=== PATIENT | female | born 1990 | race Caucasian/White ===

== ENCOUNTER 2020-03-15 15:30 | Outpatient (CLI) | payer OTHER ==
[~2020-03-15] VITALS: Ht 162.6 cm; Wt 71.4 kg
[2020-03-15 15:56] VITALS: BP 124/79; PULSE 96; TEMP 97
--- NOTE | 2020-03-15 16:05 | NUR ---
PATIENT TO [facility] FOR LABOR CHECK. PATIENT CHANGED INTO GOWN. ON EFM, VITAL SIGNS OBTAINED. PATIENT DENIES CONTRACTIONS AND LEAKING OF FLUID. PATIENT STATES SHE HAD A QUARTER TO HALF DOLLAR SIZE AMOUNT OF BLEEDING THIS MORNING AND A QUARTER SIZE THIS AFTERNOON. PATIENT STATED HER AND HAD SEXUAL INTERCOURSE ON THURSDAY NIGHT. BRYAN PRUITT. DR UMAÑA CALLED. LARGE GLASS OF ICE WATER PROVIDED TO PATIENT
[2020-03-15 16:30] VITALS: BP 124/79; PULSE 89; TEMP 97
[2020-03-15] MEDS ORDERED: PRENATAL TABLET PO (16:32)
[2020-03-15 17:00] VITALS: BP 128/80; PULSE 83
[2020-03-15 17:20] VITALS: BP 125/79; PULSE 82
== END 2020-03-15 17:25 | disposition home or self-care (01) ==
LOC: LDRO
DX: O46.93 Antepartum hemorrhage, unspecified, third trimester (principal); Z3A.33 33 weeks gestation of pregnancy

== ENCOUNTER 2020-05-09 19:20 | Inpatient (IN) | payer OTHER ==
[~2020-05-09] VITALS: Ht 162.6 cm; Wt 76.4 kg
[2020-05-09] VITALS (13 sets, daily range): BP systolic 128–179; BP diastolic 67–97; PULSE 80–122; TEMP 98.3
[~2020-05-09 19:20] MED LIST changes: -IBU800 M1 PO; -OMNICEF 300MG300 MG PO; -PROCARDIA XL 3030 MG PO
--- NOTE | 2020-05-09 19:30 | NUR ---
G1 at 41 weeks arrives to hospital with complaint of contractions every 3 minuntes for the last 45 minutes. Pt reports good movement, denies vaginal bleeding, or loss of fluid. Pt reports she has been feeling nauseous all day and has had a few episodes of vomiting. Denies headaches, changes in vision, or RUQ pain. Clean gown on. Pt oriented to room, call light within reach, bed in low and locked position. Pt visibly very uncomfortable with contractions. US and toco explained and applied. Vital signs obtained. Admission assessment started. SVE 490/-2, membranes intact. See physician notification.
--- NOTE | 2020-05-09 20:10 | NUR ---
2009- IV started, labs obtained and LR infusing per order. Pen G started per order. See EMAR for details. 2025- L.Lynsey, BILINGUAL STUDENT TUTOR at the bedside for epidural placement. SPO2 monitor started. Pt sitting up on the edge of the donato. EFM intermittently tracing maternal HR as coorelates with SPO2 monitor. 2035- Test dose done per BILINGUAL STUDENT TUTOR. See anesthesia records for details. 2042- Assisted pt back to supine position with left wedge.
[2020-05-09 20:26] LABS: BASO % 0.4 % (0.0-2.0); EOS % 0.1 % (0-4.0); GRAN # 8.6 (1.4-6.5); GRAN % 78.3 % (42.2-75.2); HEMATOCRIT 38.5 % (37.0-47.0); HEMOGLOBIN 13.8 g/dl (12.5-16.0); LYMPH # 1.5 (1.2-3.4); LYMPH % 13.4 % (20.0-51.0); MEAN CELL VOLUME 90 fl (80.0-100.0); MEAN CORPUSCULAR HEMOGLOBIN 32 pg (27.0-31.0); MEAN CORPUSCULAR HGB CONC 36 g/dl (33.0-37.0); MEAN PLATELET VOLUME 11.4 fl (7.4-10.4); MONO # 0.8 (0.1-0.6); MONO % 7.2 % (1.7-9.3); PLATELET COUNT 113 K/mm3 (130-400); REDCELL DISTRIBUTION WIDTH-CV 12.4 % (11.5-14.5)
[2020-05-09 20:35] LABS: ALBUMIN 3.8 gm/dL (3.5-5.0); BILIRUBIN,TOTAL 0.9 mg/dL (0.0-1.0); CALCIUM 9.5 mg/dL (8.4-10.2); CREATININE, serum 0.88 (0.52-1.25); POTASSIUM 3.8 mmol/L (3.4-5.0); TOTAL PROTEIN 7.1 gm/dL (6.4-8.2)
--- NOTE | 2020-05-09 21:15 | NUR ---
Pt reports SROM.
--- NOTE | 2020-05-09 22:40 | NUR ---
Straight cath done.
[2020-05-09 22:50] LABS: COLLECTION METHOD CLEAN CATCH
[2020-05-09 23:18] LABS: MUCOUS Present /lpf; PH 5 (5-8); SQUAMOUS EPITHELIAL 0-2 /hpf; URINE APPEARANCE Hazy; URINE BACTERIA None Seen /hpf; URINE BILIRUBIN Negative (NEGATIVE); URINE BLOOD 3+ (NEGATIVE); URINE COLOR Yellow; URINE GLUCOSE Negative (NEGATIVE); URINE KETONE 2+ (NEGATIVE); URINE LEUKOCYTE ESTERASE Negative (NEGATIVE); URINE NITRATE Negative (NEGATIVE); URINE PROTEIN(semi-quant) 3+ (NEGATIVE); URINE RBC >50 /hpf; URINE UROBILINOGEN Negative (NEGATIVE)
[2020-05-10] VITALS (28 sets, daily range): BP systolic 121–177; BP diastolic 73–102; PULSE 84–126; TEMP 97.6–98.9
--- NOTE | 2020-05-10 00:21 | NUR ---
2310- Pushing instructions reviewed and pushing started. 2327- Dr. Gorman at the bedside for evaluation with pushing. 2332- Pushing continued with RN at the bedside. 0008- Dr. Gorman at the bedside. Pt set up for delivery. 0021- of viable male . placed on mom's abdomen. Cords clamped and cut. Care of the given to nursery RN at the bedside. 0026- of placenta. Pitocin started at 333ml/hr per order and protocol. See EMAR for details. Fundus firm with lochia WNL. 0035- Richardson placed by Dr. Gorman.
--- NOTE | 2020-05-10 06:30 | NUR ---
Rests in bed, alert. Denies any pain or discomfort at this time. Mag sulfate infusing at 50ccs an hour. Baby at bedside.
--- NOTE | 2020-05-10 08:00 | NUR ---
Rests in bed, alert. Roles here, visits with patient. 2886 New orders to discontinue mag sulfate and lactated ringers. Mag sulfate and lactated ringers discontinued.
[2020-05-10 08:09] LABS: BASO % 0.3 % (0.0-2.0); EOS % 0.3 % (0-4.0); GRAN # 8.3 (1.4-6.5); GRAN % 78.5 % (42.2-75.2); LYMPH # 1.3 (1.2-3.4); LYMPH % 12.1 % (20.0-51.0); MEAN CELL VOLUME 90 fl (80.0-100.0); MEAN CORPUSCULAR HGB CONC 36 g/dl (33.0-37.0); MEAN PLATELET VOLUME 11.4 fl (7.4-10.4); MONO # 0.9 (0.1-0.6); MONO % 8.1 % (1.7-9.3); PLATELET COUNT 87 K/mm3 (130-400); RED BLOOD COUNT 3.47 M/mm3 (4.10-5.30); REDCELL DISTRIBUTION WIDTH-CV 12.5 % (11.5-14.5)
[2020-05-10 08:13] LABS: ALBUMIN 2.8 gm/dL (3.5-5.0); BILIRUBIN,TOTAL 0.5 mg/dL (0.0-1.0); CALCIUM 6.9 mg/dL (8.4-10.2); CREATININE, serum 0.72 (0.52-1.25); POTASSIUM 3.8 mmol/L (3.4-5.0); TOTAL PROTEIN 5.3 gm/dL (6.4-8.2)
[2020-05-10 08:14] LABS: HEMATOCRIT 31.2 % (37.0-47.0); HEMOGLOBIN 11.2 g/dl (12.5-16.0); MEAN CORPUSCULAR HEMOGLOBIN 32 pg (27.0-31.0)
[2020-05-10 08:15] LABS: MAGNESIUM 6.3 mg/dL (1.6-2.3)
[2020-05-11 07:45] VITALS: BP 133/88; PULSE 92; TEMP 98.1
[2020-05-11 08:31] LABS: BASO # 0.1 (0.0-0.2); BASO % 0.5 % (0.0-2.0); EOS # 0.2 (0.0-0.7); EOS % 1.7 % (0-4.0); GRAN # 8.3 (1.4-6.5); HEMATOCRIT 37.9 % (37.0-47.0); HEMOGLOBIN 13.1 g/dl (12.5-16.0); LYMPH # 2.2 (1.2-3.4); MEAN CELL VOLUME 92 fl (80.0-100.0); MEAN CORPUSCULAR HEMOGLOBIN 32 pg (27.0-31.0); MEAN CORPUSCULAR HGB CONC 35 g/dl (33.0-37.0); MEAN PLATELET VOLUME 11.5 fl (7.4-10.4); MONO # 0.6 (0.1-0.6); MONO % 5.2 % (1.7-9.3); PLATELET COUNT 117 K/mm3 (130-400); RED BLOOD COUNT 4.11 M/mm3 (4.10-5.30)
[2020-05-11] MEDS ORDERED: PROCARDIA XL 3030 MG PO (08:39)
[2020-05-11] MEDS ORDERED: IBU800 M1 PO (08:39)
[2020-05-11 08:41] LABS: ALBUMIN 3.5 gm/dL (3.5-5.0); BILIRUBIN,TOTAL 0.3 mg/dL (0.0-1.0); CALCIUM 8.5 mg/dL (8.4-10.2); CREATININE, serum 0.68 (0.52-1.25); POTASSIUM 3.8 mmol/L (3.4-5.0); TOTAL PROTEIN 6.7 gm/dL (6.4-8.2)
--- NOTE | 2020-05-11 09:30 | NUR ---
Rests in bed, alert. Tylenol 650 mg given per request and as ordered.
--- NOTE | 2020-05-11 10:26 | NUR ---
Initial visit; Parents thanked Chainstitch Felled Seam Operator for offering congratulations and God's blessings for the of their son. Chainstitch Felled Seam Operator thanked family for choosing [facility].
[2020-05-11 17:06] VITALS: BP 135/97; PULSE 86; TEMP 98.6
[2020-05-11 20:45] VITALS: BP 130/75; PULSE 91; TEMP 97.8
[2020-05-12 01:31] VITALS: BP 119/84; PULSE 81; TEMP 98.2
[2020-05-12 05:44] VITALS: BP 123/75; PULSE 71; TEMP 98.2
[2020-05-12 09:22] VITALS: BP 140/92; PULSE 86; TEMP 98.1
== END 2020-05-12 11:06 | disposition home or self-care (01) | DRG 807 ==
LOC: LDRO 19:20 → LDR 19:44 → OB 05-10 13:40
PROVIDERS: Student in an Organized Health Care Education/Training Program; ADMIT Obstetrics & Gynecology
PROC: 10E0XZZ Delivery of Products of Conception, External Approach (ICD-10-PCS; principal; 2020-05-09)
PROC: 0W8NXZZ Division of Female Perineum, External Approach (ICD-10-PCS; 2020-05-09)
DX: O14.24 HELLP syndrome, complicating childbirth (principal); Z37.0 Single live birth; O48.0 Post-term pregnancy; Z3A.41 41 weeks gestation of pregnancy; O99.824 Streptococcus B carrier state complicating childbirth
CPT/HCPCS: J2540; J2590; J3475; J7120

== ENCOUNTER → 2020-05-09 | Outpatient (CLI) | payer OTHER ==
[~2020-05-09] MED LIST: IBU800 M1 PO; OMNICEF 300MG300 MG PO; PRENATAL TABLET PO; PROCARDIA XL 3030 MG PO
== END ==
LOC: ZCOL.LAB
DX: Z20.828 Contact with and (suspected) exposure to other viral communicable diseases (principal)

== ENCOUNTER 2020-05-20 21:07 | Emergency (ER) | payer OTHER ==
[~2020-05-20] VITALS: Ht 162.6 cm; Wt 68.2 kg
[~2020-05-20 21:07] MED LIST changes: +IBU800 M1 PO; +PROCARDIA XL 3030 MG PO
[2020-05-20 21:30] VITALS: TEMP 98.5
[2020-05-20 22:14] LABS: BASO % 0.2 % (0.0-2.0); EOS % 0.3 % (0-4.0); GRAN # 4.1 (1.4-6.5); HEMOGLOBIN 12.2 g/dl (12.5-16.0); LYMPH # 1.6 (1.2-3.4); LYMPH % 27.1 % (20.0-51.0); MEAN CELL VOLUME 90 fl (80.0-100.0); MEAN CORPUSCULAR HEMOGLOBIN 32 pg (27.0-31.0); MEAN CORPUSCULAR HGB CONC 35 g/dl (33.0-37.0); MEAN PLATELET VOLUME 8.8 fl (7.4-10.4); MONO % 0.5 % (1.7-9.3); PLATELET COUNT 457 K/mm3 (130-400); RED BLOOD COUNT 3.87 M/mm3 (4.10-5.30); REDCELL DISTRIBUTION WIDTH-CV 12.6 % (11.5-14.5)
[2020-05-20 22:19] LABS: PROTHROMBIN TIME 11.4 SECONDS (9.7-12.8)
[2020-05-20 22:27] LABS: ALANINE AMINOTRANSFERASE 35 U/L (4-34); ALBUMIN 4.2 gm/dL (3.5-5.0); ALKALINE PHOSPHATASE 124 U/L (50-136); ANION GAP 9 mmol/L (7-16); AST,SGOT 33 U/L (15-37); BILIRUBIN,TOTAL 0.3 mg/dL (0.0-1.0); BLOOD UREA NITROGEN 14 mg/dL (7-17); CALCIUM 9.3 mg/dL (8.4-10.2); CARBON DIOXIDE 21 mmol/L (22-30); CHLORIDE 106 mmol/L (98-107); CREATININE, serum 0.81 (0.52-1.25); GLUCOSE 87 mg/dL (74-106); POTASSIUM 3.9 mmol/L (3.4-5.0); SODIUM 136 mmol/L (137-145); TOTAL PROTEIN 7.2 gm/dL (6.4-8.2)
[2020-05-20 22:28] LABS: C-REACTIVE PROTEIN < 0.5 mg/dL (0.0-0.9)
[2020-05-20 22:36] LABS: TROPONIN-I < 0.012 ng/mL (0.000-0.035)
[2020-05-20 23:01] LABS: COLLECTION METHOD CLEAN CATCH
[2020-05-20 23:14] LABS: PH 6 (5-8); SQUAMOUS EPITHELIAL 0-2 /hpf; URINE APPEARANCE Clear; URINE BACTERIA Rare /hpf; URINE BILIRUBIN Negative (NEGATIVE); URINE BLOOD 3+ (NEGATIVE); URINE COLOR Straw; URINE GLUCOSE Negative (NEGATIVE); URINE KETONE Negative (NEGATIVE); URINE LEUKOCYTE ESTERASE 2+ (NEGATIVE); URINE NITRATE Negative (NEGATIVE); URINE PROTEIN(semi-quant) Negative (NEGATIVE); URINE RBC 0-2 /hpf; URINE UROBILINOGEN Negative (NEGATIVE)
[2020-05-21 01:33] VITALS: BP 127/85; PULSE 104
[2020-05-21] MEDS ORDERED: OMNICEF 300MG300 MG PO (01:35)
== END 2020-05-21 01:51 | disposition home or self-care (01) ==
LOC: COL.ER 21:07
PROVIDERS: Emergency Medicine
DX: O90.89 Other complications of the puerperium, not elsewhere classified (principal); N39.0 Urinary tract infection, site not specified; R68.83 Chills (without fever); R00.0 Tachycardia, unspecified; R06.00 Dyspnea, unspecified
CPT/HCPCS: J0696; J1200; J1885; J2765; J7030; Q9967

== ENCOUNTER → 2020-05-29 | Outpatient (CLI) | payer OTHER ==
[~2020-05-29] MED LIST changes: +OMNICEF 300MG300 MG PO
--- NOTE | 2020-05-29 14:52 | NUR ---
Pt, Stacie Devikaclaudia, presents for outpatient with 19 day old baby, Marco Pa, because of nipple soreness, and concern about Marco's latch. Marco was born on 05/10/2020 and weighed 6#15.8oz (3170 gms). His discharge weight was 6#8oz (2940 gms). Today Marco weighs 8#0.8oz (3652 gms. Pt reports nursing every 2-3 hours, qs voids and stools. Dad bottle feeds him once daily with ~3oz EBM. She is able to collect and store milk as well. Pt has worked on latching since our converation at time of scheduling this appt. and feels in general the latch is getting more consistent. She handles baby and breast well and baby latches well. She is making sure to keep him close once he is latched. Pt reports sharp, electric shock type pain in the nipples about 10-15 minutes after nursing. LC advises this is likely Raynauds disease and is circulatory related. Advised to keep heating pad near and apply low heat to nipples after . After Marco has a weight gain of 2.2oz (60 gms). POC: Continue with current feeding plan. Apply low heat to nipples after . F/U: Well baby vist at [address] Martínez. Questions invited and answered.
== END ==
LOC: LAC 13:52
DX: Z39.1 Encounter for care and examination of lactating mother (principal); Z71.89 Other specified counseling

== ENCOUNTER → 2020-10-08 | Outpatient (CLI) | payer OTHER ==
--- NOTE | 2020-10-08 15:00 | NUR ---
Pt, Stacie Pa, presents for outpatient consult with five month old baby boy, Marco Pa. She has concerns that Marco is not gaining weight as well as he has, and that her milk supply is low. Marco was born on 05/10/2020 and weighed 6#15.8oz (3170 gms). Reported weights from well baby visits appear to be WNL, but then she states at a recent appointment he had fallen to the 27th percentile. On 09/14/20 he weighted 14#7oz. Today Marco weighs 15#0.6oz, for a gain of 9.6oz in the last 24 days. Pt reports Marco does not nap a long as he used to and he acts hungrier sooner leading her to believe he is not getting enough milk from her. Additionally, he drinks 5oz bottles when he bottle fed and this makes him content longer and nap better. He feeds 6 times per day, sleeping upto 10 hours a noc, except a couple nights ago when he was up about every 3 hours. After at this appt. Marco had a weight gain of 3.4oz. LC reviews suggestions for increasing milk supply to include more times per 24 hours, and/or pumping after each feeding to ensure complete emptiness of the breasts and to provide supplement as needed after . POC: Pt will work on increasing milk supply with suggestions provided. F/U: As scheduled for Marco's next well baby appt or with this LC as desired for follow up. Questions invited and answered.
== END ==
LOC: LAC 07:57
DX: Z39.1 Encounter for care and examination of lactating mother (principal); Z71.89 Other specified counseling